=== PATIENT | female | born 1965 | race Native Hawaiian/Other Pacific Islander ===

== ENCOUNTER 2021-12-22 14:23 | Emergency (ER) | payer OTHER ==
[~2021-12-22] VITALS: Ht 160 cm; Wt 61.2 kg
[2021-12-22 14:25] VITALS: BP 118/69; TEMP 98.3
== END 2021-12-22 14:30 | disposition left against medical advice (07) ==
LOC: ED 14:23
DX: Z53.21 Procedure and treatment not carried out due to patient leaving prior to being seen by health care provider (principal)

== ENCOUNTER 2021-12-22 14:36 | Emergency (ER) | payer OTHER | END 2021-12-22 14:52 | disposition left against medical advice (07) | LOC: ED 14:36 | DX: Z53.21 Procedure and treatment not carried out due to patient leaving prior to being seen by health care provider (principal) ==